=== PATIENT | female | born 1955 | race African-American/Black ===

== ENCOUNTER 2016-07-31 02:44 | Inpatient (IN) | payer OTHER ==
[~2016-07-31] VITALS: Ht 167.6 cm; Wt 75.7 kg
[~2016-07-31 02:44] MED LIST: CLON.2 PO; DIPH50 PO; IBUP200T50 PO; METO25 PO; RANI-257 PO; SENN-161 PO; TRAM50TA4 PO
[2016-07-31 03:10] LABS: BASOPHILS % (AUTO) 0.4 % (0.0-2.0); EOSINOPHILS % (AUTO) 1.2 % (1.0-6.0); HEMATOCRIT 38.6 % (36-46); HEMOGLOBIN 12.5 g/dL (12.0-16.0); LYMPHOCYTES # (AUTO) 3.2 K/uL (1.0-4.8); LYMPHOCYTES % (AUTO) 32.2 % (22.0-44.0); MEAN CORPUSCULAR HEMOGLOBIN 28.3 pg (26.0-34.0); MEAN CORPUSCULAR HGB CONC 32.5 G/dL (31.0-37.0); MEAN CORPUSCULAR VOLUME 87 fL (80-100); MONOCYTES # (AUTO) 0.7 K/uL (0.1-1.0); MONOCYTES % (AUTO) 7.1 % (2.0-9.0); NEUTROPHILS # (AUTO) 5.9 K/uL (1.8-7.7); NEUTROPHILS % (AUTO) 59.1 % (40.0-70.0); PLATELET COUNT (AUTO) 174 K/uL (150-450); RED BLOOD CELL COUNT(AUTO) 4.43 MIL/uL (4.00-5.20); RED CELL DISTRIBUTION WIDTH 14.2 % (11.5-14.5)
[2016-07-31 03:26] LABS: B-TYPE NATRIURETIC PEPTIDE 444 pg/mL (0-100)
[2016-07-31 03:36] LABS: ALANINE AMINOTRANSFERASE 40 U/L (12-78); ALBUMIN 3.2 g/dL (3.4-5.0); ANION GAP 12 mmol/L (8-16); ASPARTATE AMINOTRANSFERASE 40 U/L (15-37); BILIRUBIN,TOTAL 0.3 mg/dL (0.1-1.0); CALCIUM, TOTAL 8.5 mg/dL (8.8-10.5); CARBON DIOXIDE 23 mmol/L (22-29); CHLORIDE 103 mmol/L (98-107); CREATINE KINASE, TOTAL 104 U/L (26-192); CREATININE 1.37 mg/dL (0.60-1.30); GLOMERULAR FILTR. RATE CALC 47 mL/min (>60); SODIUM SERUM 138 mmol/L (136-145); TOTAL PROTEIN, SERUM 7.9 g/dL (6.4-8.2); UREA NITROGEN, BLOOD 34 mg/dL (7-18)
[2016-07-31 03:39] LABS: POTASSIUM 2.5 mmol/L (3.5-5.1)
[2016-07-31 03:47] LABS: INR 1.2 (0.9-1.1); PROTHROMBIN TIME 12.4 SEC (9.4-11.6)
[2016-07-31 03:48] LABS: CREATINE KINASE MB 1.4 ng/mL (0-5)
[2016-07-31] MEDS ORDERED: DIGOXIN 250 MCG/ML 2 ML AMP IVP ONE (04:00)
[2016-07-31] MEDS ORDERED: POTASSIUM CHLORIDE 10% 40 MEQ/30 ML LIQUID UDCUP PO ONE (04:00)
[2016-07-31] MEDS ORDERED: ASPIRIN 325 MG TABLET PO ONE (04:00)
[2016-07-31] MEDS ORDERED: 0.9% SODIUM CHLORIDE 10 ML SYRINGE IVP PRN ×2 (04:00→05:00)
[2016-07-31] MEDS ORDERED: POTASSIUM CHL 10 MEQ/WATER 50 ML IV ONE (04:00)
[2016-07-31] MEDS ORDERED: ACETAMINOPHEN 325 MG TABLET PO PRN ×2 (04:00→05:00)
[2016-07-31] MEDS ORDERED: ONDANSETRON HCL 4 MG/2 ML VIAL IVP PRN ×2 (04:00→05:00)
[2016-07-31] MEDS ORDERED: DILTIAZEM HCL 5 MG/ML 5 ML VIAL IVP ONE (04:00)
[2016-07-31 04:01] LABS: APPEARANCE,URINE CLEAR (CLEAR); GLUCOSE, URINE (UA) NEGATIVE (NEGATIVE); KETONES,URINE NEGATIVE (NEGATIVE); LEUKOCYTE ESTERASE ,URINE MODERATE (NEGATIVE); OCCULT BLOOD,URINE NEGATIVE (NEGATIVE); PROTEIN,URINE NEGATIVE (NEGATIVE)
[2016-07-31 04:02] LABS: ADD UA MICROSCOPIC YES
[2016-07-31 04:10] LABS: RBC,URINE None Seen /HPF (0-2); SQUAMOUS EPITHELIAL CELL,UR Few /LPF (None Seen)
[2016-07-31] MEDS ORDERED: MAGNESIUM HYDROXIDE SUSPENSION 30 ML UDCUP PO PRN (05:00)
[2016-07-31] MEDS ORDERED: TraMADol HCL 50 MG TABLET PO PRN (05:00)
[2016-07-31] MEDS ORDERED: OxyCODONE HCL/ACETAMINOPHEN 5-325 MG TABLET PO PRN ×2 (05:00)
[2016-07-31] MEDS ORDERED: NITROGLYCERIN 2% (1 GM=INCH) PACKET TP PRN ×2 (05:15)
[2016-07-31] MEDS ORDERED: MORPHINE SULFATE 2 MG/ML SYRINGE IVP PRN (05:15)
[2016-07-31] MEDS ORDERED: NITROGLYCERIN 0.4 MG SUBLINGUAL TABLET #25 SL PRN (05:15)
[2016-07-31 05:39] VITALS: BP 123/83
[2016-07-31] MEDS ORDERED: PNEUMOCOCCAL VACCINE POLYVALENT 0.5 ML VIAL [PPSV23] IM ONE (06:15)
[2016-07-31] MEDS ORDERED: INFLUENZA VIRUS VACCINE QVS 2016-17 (3YR+)/PF 60 MCG/0.5 ML SYRINGE IM ONE (06:15)
[2016-07-31 07:35] VITALS: BP 148/91
[2016-07-31] MEDS ORDERED: POTASSIUM CHL 10 MEQ/WATER 50 ML IV PRN (08:00)
[2016-07-31] MEDS ORDERED: LISINOPRIL 5 MG TABLET PO SCH (09:00)
[2016-07-31] MEDS ORDERED: METOPROLOL TARTRATE 25 MG TABLET PO SCH (09:00)
[2016-07-31 09:11] LABS: POTASSIUM 2.8 mmol/L (3.5-5.1)
[2016-07-31] MEDS: PANTOPRAZOLE SODIUM 40 MG/VIAL IVP SCH (09:17)
[2016-07-31] MEDS: CloNIDine HCL 0.2 MG TABLET PO SCH ×2 (09:17→20:14)
[2016-07-31] MEDS: ASPIRIN 81 MG CHEWABLE TABLET PO SCH (09:17)
[2016-07-31] MEDS: CARVEDILOL 6.25 MG TABLET PO SCH ×3 (09:18→20:14)
[2016-07-31] MEDS: DOCUSATE SODIUM 100 MG CAPSULE PO SCH ×2 (09:18→20:14)
[2016-07-31] MEDS: SENNA 187 MG TABLET PO SCH (09:18)
[2016-07-31] MEDS: POTASSIUM CHLORIDE 20 MEQ ER TABLET PO PRN ×2 (10:58→18:11)
[2016-07-31 11:50] VITALS: BP 154/78
[2016-07-31] MEDS: DiphenhydrAMINE HCL 25 MG CAPSULE PO PRN (12:22)
[2016-07-31] MEDS: GuaiFENesin/D-METHORPHAN [SUGAR-FREE] 200-20MG/10 ML SYRUP UDCUP PO PRN ×2 (13:20→17:16)
[2016-07-31 15:39] VITALS: BP 122/84
[2016-07-31] MEDS: MAG HYDROX/AL HYDROX/SIMETH 30 ML SUSP UDCUP PO PRN (17:17)
[2016-07-31 19:50] VITALS: BP 122/70
[2016-07-31] MEDS: ZOLPIDEM TARTRATE 5 MG TABLET PO PRN (20:13)
[2016-08-01] MEDS: DiphenhydrAMINE HCL 25 MG CAPSULE PO PRN ×2 (00:02→09:43)
[2016-08-01 04:00] VITALS: BP 126/78
[2016-08-01 07:16] LABS: BASOPHILS % (AUTO) 0.4 % (0.0-2.0); HEMATOCRIT 39.4 % (36-46); HEMOGLOBIN 12.6 g/dL (12.0-16.0); LYMPHOCYTES # (AUTO) 2.7 K/uL (1.0-4.8); LYMPHOCYTES % (AUTO) 34.3 % (22.0-44.0); MEAN CORPUSCULAR HEMOGLOBIN 28.5 pg (26.0-34.0); MEAN CORPUSCULAR HGB CONC 31.9 G/dL (31.0-37.0); MEAN CORPUSCULAR VOLUME 89 fL (80-100); MONOCYTES # (AUTO) 0.5 K/uL (0.1-1.0); MONOCYTES % (AUTO) 6.7 % (2.0-9.0); NEUTROPHILS # (AUTO) 4.5 K/uL (1.8-7.7); NEUTROPHILS % (AUTO) 56.6 % (40.0-70.0); PLATELET COUNT (AUTO) 163 K/uL (150-450); RED BLOOD CELL COUNT(AUTO) 4.42 MIL/uL (4.00-5.20); RED CELL DISTRIBUTION WIDTH 14.6 % (11.5-14.5); WHITE BLOOD COUNT (AUTO) 7.9 K/uL (4.5-11.0)
[2016-08-01 07:38] LABS: ALBUMIN 2.9 g/dL (3.4-5.0); BILIRUBIN,TOTAL 0.4 mg/dL (0.1-1.0); CALCIUM, TOTAL 8.8 mg/dL (8.8-10.5); CREATININE 1.31 mg/dL (0.60-1.30); MAGNESIUM 1.7 mg/dL (1.80-2.40); POTASSIUM 3.9 mmol/L (3.5-5.1); TOTAL PROTEIN, SERUM 7.9 g/dL (6.4-8.2)
[2016-08-01 08:21] VITALS: BP 112/70
[2016-08-01] MEDS: CloNIDine HCL 0.2 MG TABLET PO SCH ×2 (09:00→21:00)
[2016-08-01] MEDS: CARVEDILOL 6.25 MG TABLET PO SCH ×2 (09:41→17:12)
[2016-08-01] MEDS: SENNA 187 MG TABLET PO SCH (09:42)
[2016-08-01] MEDS: DOCUSATE SODIUM 100 MG CAPSULE PO SCH ×2 (09:42→21:00)
[2016-08-01] MEDS: ASPIRIN 81 MG CHEWABLE TABLET PO SCH (09:42)
[2016-08-01] MEDS: PANTOPRAZOLE SODIUM 40 MG/VIAL IVP SCH (09:55)
[2016-08-01] MEDS: GuaiFENesin/D-METHORPHAN [SUGAR-FREE] 200-20MG/10 ML SYRUP UDCUP PO PRN (10:35)
[2016-08-01 12:58] VITALS: BP 127/64
[2016-08-01] MEDS: MAG HYDROX/AL HYDROX/SIMETH 30 ML SUSP UDCUP PO PRN (15:01)
[2016-08-01 15:46] VITALS: BP 151/75
[2016-08-01 19:50] VITALS: BP 125/84
[2016-08-01] MEDS ORDERED: CARVEDILOL 12.5 MG TABLET PO SCH (21:00)
[2016-08-01 23:26] VITALS: BP 128/89
[2016-08-02] MEDS: ZOLPIDEM TARTRATE 5 MG TABLET PO PRN (02:18)
[2016-08-02 04:08] VITALS: BP 142/70
[2016-08-02 06:34] LABS: BASOPHILS # (AUTO) 0.02 K/uL (0.00-0.20); BASOPHILS % (AUTO) 0.2 % (0.0-2.0); EOSINOPHILS # (AUTO) 0.06 K/uL (0.00-0.70); EOSINOPHILS % (AUTO) 0.64 % (1.0-6.0); HEMATOCRIT 39.2 % (36-46); HEMOGLOBIN 12.8 g/dL (12.0-16.0); LYMPHOCYTES % (AUTO) 31.6 % (22.0-44.0); MEAN CORPUSCULAR HEMOGLOBIN 28.4 pg (26.0-34.0); MEAN CORPUSCULAR HGB CONC 32.5 G/dL (31.0-37.0); MEAN CORPUSCULAR VOLUME 87 fL (80-100); MONOCYTES # (AUTO) 0.8 K/uL (0.1-1.0); MONOCYTES % (AUTO) 8.1 % (2.0-9.0); NEUTROPHILS # (AUTO) 5.7 K/uL (1.8-7.7); NEUTROPHILS % (AUTO) 59.5 % (40.0-70.0); PLATELET COUNT (AUTO) 170 K/uL (150-450); RED BLOOD CELL COUNT(AUTO) 4.49 MIL/uL (4.00-5.20); RED CELL DISTRIBUTION WIDTH 14.3 % (11.5-14.5); WHITE BLOOD COUNT (AUTO) 9.5 K/uL (4.5-11.0)
[2016-08-02 07:19] LABS: ALBUMIN 3.2 g/dL (3.4-5.0); BILIRUBIN,TOTAL 0.4 mg/dL (0.1-1.0); CALCIUM, TOTAL 9.2 mg/dL (8.8-10.5); CREATININE 1.3 mg/dL (0.60-1.30); MAGNESIUM 1.8 mg/dL (1.80-2.40); POTASSIUM 3.6 mmol/L (3.5-5.1); TOTAL PROTEIN, SERUM 8.4 g/dL (6.4-8.2)
[2016-08-02 08:36] VITALS: BP 162/92
[2016-08-02] MEDS ORDERED: CloNIDine HCL 0.2 MG TABLET PO SCH (09:00)
[2016-08-02] MEDS ORDERED: ASPIRIN 81 MG CHEWABLE TABLET PO SCH (09:00)
[2016-08-02] MEDS: DOCUSATE SODIUM 100 MG CAPSULE PO SCH (09:00)
[2016-08-02] MEDS ORDERED: FUROSEMIDE 40 MG TABLET PO SCH (09:00)
[2016-08-02] MEDS: SENNA 187 MG TABLET PO SCH (09:00)
[2016-08-02] MEDS: PANTOPRAZOLE SODIUM 40 MG/VIAL IVP SCH (09:00)
[2016-08-02] MEDS ORDERED: SPIRONOLACTONE 50 MG TABLET PO SCH (09:00)
[2016-08-02] MEDS ORDERED: LISINOPRIL 5 MG TABLET PO SCH (09:00)
[2016-08-02] MEDS ORDERED: POTASSIUM CHLORIDE 10% 40 MEQ/30 ML LIQUID UDCUP PO SCH (09:00)
[2016-08-02] MEDS ORDERED: LISINOPRIL 10 MG TABLET PO SCH (09:00)
[2016-08-02] MEDS ORDERED: CARVEDILOL 25 MG TABLET PO SCH (09:00)
[2016-08-02] MEDS ORDERED: ASPI81 PO (11:31)
[2016-08-02] MEDS ORDERED: LISI-661 PO (11:32)
[2016-08-02] MEDS ORDERED: CARV25 PO (11:32)
[2016-08-02] MEDS ORDERED: CLON.1 PO (11:33)
[2016-08-02] MEDS ORDERED: FURO40 PO (11:33)
[2016-08-02] MEDS ORDERED: KDUR10 PO (11:34)
[2016-08-02] MEDS ORDERED: SPIR25 PO (11:34)
== END 2016-08-02 12:15 | disposition home or self-care (01) | DRG 201 ==
LOC: EMS 02:44 → 5N 05:00
PROVIDERS: ADMIT Internal Medicine; ATTEND Internal Medicine
DX: I48.0 Paroxysmal atrial fibrillation (principal); N17.9 Acute kidney failure, unspecified; E44.0 Moderate protein-calorie malnutrition; I42.9 Cardiomyopathy, unspecified; I11.0 Hypertensive heart disease with heart failure; I50.22 Chronic systolic (congestive) heart failure; E87.6 Hypokalemia; E78.5 Hyperlipidemia, unspecified; E86.0 Dehydration; F10.10 Alcohol abuse, uncomplicated; Z28.21 Immunization not carried out because of patient refusal; Z88.0 Allergy status to penicillin; Z79.899 Other long term (current) drug therapy; Z79.1 Long term (current) use of non-steroidal anti-inflammatories (NSAID); Z68.26 Body mass index [BMI] 26.0-26.9, adult; Z87.891 Personal history of nicotine dependence; Z91.19 Patient's noncompliance with other medical treatment and regimen
CPT/HCPCS: 83735; 84132; 90471; 93005; 93306; 96361; 96374; 99285; C9113; J1160; J2270; J3480; J3490

== ENCOUNTER 2016-08-13 07:47 | Inpatient (IN) | payer OTHER ==
[~2016-08-13] VITALS: Ht 167.6 cm; Wt 83.2 kg
[~2016-08-13 07:47] MED LIST changes: +ASPI81 PO; +CARV25 PO; +CLON.1 PO; -CLON.2 PO; +FURO40 PO; +KDUR10 PO; +LISI-661 PO; +SPIR25 PO
[2016-08-13] MEDS ORDERED: 0.9% SODIUM CHLORIDE 10 ML SYRINGE IVP PRN ×2 (08:00→11:15)
[2016-08-13] MEDS ORDERED: ALBUTEROL SULFATE 2.5 MG/0.5 ML NEB SOLUTION NEB ONE (08:00)
[2016-08-13] MEDS ORDERED: IPRATROPIUM BROMIDE 0.5 MG/2.5 ML NEB SOLUTION NEB ONE (08:00)
[2016-08-13 08:29] LABS: BASOPHILS % (AUTO) 0.2 % (0.0-2.0); EOSINOPHILS % (AUTO) 0.5 % (1.0-6.0); HEMOGLOBIN 12.6 g/dL (12.0-16.0); LYMPHOCYTES # (AUTO) 1.6 K/uL (1.0-4.8); LYMPHOCYTES % (AUTO) 18.4 % (22.0-44.0); MEAN CORPUSCULAR HEMOGLOBIN 27.5 pg (26.0-34.0); MEAN CORPUSCULAR HGB CONC 31.5 G/dL (31.0-37.0); MEAN CORPUSCULAR VOLUME 87 fL (80-100); MONOCYTES # (AUTO) 0.5 K/uL (0.1-1.0); MONOCYTES % (AUTO) 5.5 % (2.0-9.0); NEUTROPHILS # (AUTO) 6.7 K/uL (1.8-7.7); NEUTROPHILS % (AUTO) 75.4 % (40.0-70.0); PLATELET COUNT (AUTO) 179 K/uL (150-450); RED BLOOD CELL COUNT(AUTO) 4.58 MIL/uL (4.00-5.20); RED CELL DISTRIBUTION WIDTH 14.8 % (11.5-14.5); WHITE BLOOD COUNT (AUTO) 8.9 K/uL (4.5-11.0)
[2016-08-13 08:35] LABS: INR 1.3 (0.9-1.1); PROTHROMBIN TIME 13.8 SEC (9.4-11.6)
[2016-08-13 08:48] LABS: B-TYPE NATRIURETIC PEPTIDE 793 pg/mL (0-100)
[2016-08-13 08:58] LABS: ALANINE AMINOTRANSFERASE 97 U/L (12-78); ALBUMIN 3.2 g/dL (3.4-5.0); ANION GAP 11 mmol/L (8-16); ASPARTATE AMINOTRANSFERASE 54 U/L (15-37); BILIRUBIN,TOTAL 0.7 mg/dL (0.1-1.0); CALCIUM, TOTAL 8.3 mg/dL (8.8-10.5); CARBON DIOXIDE 25 mmol/L (22-29); CHLORIDE 105 mmol/L (98-107); CREATINE KINASE MB 2.6 ng/mL (0-5); CREATINE KINASE, TOTAL 140 U/L (26-192); CREATININE 1.38 mg/dL (0.60-1.30); GLOMERULAR FILTR. RATE CALC 47 mL/min (>60); SODIUM SERUM 141 mmol/L (136-145); TOTAL PROTEIN, SERUM 7.6 g/dL (6.4-8.2); UREA NITROGEN, BLOOD 19 mg/dL (7-18)
[2016-08-13 09:06] LABS: POTASSIUM 2.9 mmol/L (3.5-5.1)
[2016-08-13 09:07] LABS: LACTIC ACID 2.1 mmol/L (0.4-2.0)
[2016-08-13] MEDS ORDERED: POTASSIUM CHLORIDE 10% 40 MEQ/30 ML LIQUID UDCUP PO ONE (09:15)
[2016-08-13] MEDS ORDERED: FUROSEMIDE 40 MG/4 ML VIAL IVP ONE (09:15)
[2016-08-13] MEDS ORDERED: CefTRIAXone SODIUM 2 GM in DEXTROSE 5%-WATER 50 ML IV ONE (09:15)
[2016-08-13] MEDS ORDERED: NITROGLYCERIN 2% (1 GM=INCH) PACKET TP ONE (09:15)
[2016-08-13 09:25] LABS: INFLUENZA TYPE B NEGATIVE FOR TYPE B (NEGATIVE)
[2016-08-13 09:29] LABS: PROCALCITONIN (PCT) < 0.05 ng/mL (<0.50)
[2016-08-13] MEDS: POTASSIUM CHL 10 MEQ/WATER 50 ML IV SCH ×3 (09:41→12:51)
[2016-08-13 10:01] LABS: APPEARANCE,URINE CLOUDY (CLEAR); GLUCOSE, URINE (UA) NEGATIVE (NEGATIVE); KETONES,URINE TRACE mg/dL (NEGATIVE); LEUKOCYTE ESTERASE ,URINE SMALL (NEGATIVE); OCCULT BLOOD,URINE NEGATIVE (NEGATIVE); PH,URINE 6.5 (5.0-8.0); PROTEIN,URINE POS 1+ (NEGATIVE)
[2016-08-13 10:18] LABS: REFLEX LACTIC ACID? YES YES
[2016-08-13 10:33] LABS: ADD UA MICROSCOPIC YES; RBC,URINE None Seen /HPF (0-2)
[2016-08-13 10:36] LABS: SQUAMOUS EPITHELIAL CELL,UR Moderate /LPF (None Seen)
[2016-08-13] MEDS ORDERED: ONDANSETRON HCL 4 MG/2 ML VIAL IVP PRN (11:15)
[2016-08-13] MEDS ORDERED: ACETAMINOPHEN 325 MG TABLET PO PRN (11:15)
[2016-08-13] MEDS ORDERED: DILTIAZEM HCL 5 MG/ML 5 ML VIAL IVP ONE (12:15)
[2016-08-13] MEDS: ALBUTEROL SULFATE 2.5 MG/0.5 ML NEB SOLUTION NEB SCH ×2 (13:27→20:11)
[2016-08-13] MEDS: IPRATROPIUM BROMIDE 0.5 MG/2.5 ML NEB SOLUTION NEB SCH ×2 (13:28→20:12)
[2016-08-13] MEDS ORDERED: HYDROCODONE/ACETAMINOPHEN 5-325 MG TABLET PO ONE (14:00)
[2016-08-13 16:17] VITALS: BP 124/71
[2016-08-13 19:22] VITALS: BP 116/54
[2016-08-13] MEDS ORDERED: MAGNESIUM SULFATE 2 GM in DEXTROSE 5%-WATER 50 ML IV PRN (22:30)
[2016-08-13] MEDS ORDERED: POTASSIUM CHL 10 MEQ/WATER 50 ML IV PRN (22:30)
[2016-08-13] MEDS ORDERED: MAGNESIUM OXIDE 400 MG TABLET PO PRN (22:30)
[2016-08-13] MEDS ORDERED: MAGNESIUM SULFATE 4 GM/WATER 100 ML IV PRN (22:30)
[2016-08-13] MEDS ORDERED: POTASSIUM CHLORIDE 20 MEQ ER TABLET PO PRN (22:30)
[2016-08-13] MEDS ORDERED: ZOLPIDEM TARTRATE 10 MG TABLET PO PRN (22:30)
[2016-08-13] MEDS ORDERED: DiphenhydrAMINE HCL 50 MG CAPSULE PO PRN (22:45)
[2016-08-13 23:30] VITALS: BP 111/76
[2016-08-14 06:30] VITALS: BP 108/66
[2016-08-14 07:41] VITALS: BP 118/72
[2016-08-14] MEDS: SPIRONOLACTONE 25 MG TABLET PO SCH (09:00)
[2016-08-14] MEDS: CARVEDILOL 25 MG TABLET PO SCH ×2 (09:00→21:00)
[2016-08-14] MEDS ORDERED: FUROSEMIDE 40 MG TABLET PO SCH (09:00)
[2016-08-14] MEDS: CloNIDine HCL 0.1 MG TABLET PO SCH ×2 (09:00→21:00)
[2016-08-14] MEDS: FUROSEMIDE 40 MG/4 ML VIAL IVP SCH ×2 (09:19→21:00)
[2016-08-14] MEDS: LISINOPRIL 10 MG TABLET PO SCH (09:19)
[2016-08-14] MEDS: POTASSIUM CHLORIDE 10 MEQ ER TABLET PO SCH (09:19)
[2016-08-14] MEDS: ASPIRIN 81 MG CHEWABLE TABLET PO SCH (09:19)
[2016-08-14] MEDS: METOPROLOL TARTRATE 25 MG TABLET PO SCH (09:19)
[2016-08-14] MEDS ORDERED: MINERAL OIL 133 ML ENEMA PR ONE (11:00)
[2016-08-14] MEDS ORDERED: LORazepam 2 MG/ML VIAL IM ONE (12:00)
[2016-08-14] MEDS ORDERED: DiphenhydrAMINE HCL 50 MG/ML VIAL IM ONE (12:00)
[2016-08-14] MEDS ORDERED: HALOPERIDOL LACTATE 5 MG/ML VIAL IM ONE (12:00)
[2016-08-14] MEDS ORDERED: SODIUM CHLORIDE 0.9% 100 ML ONE (14:19)
[2016-08-14 15:43] VITALS: BP 100/59
[2016-08-14 20:28] VITALS: BP 106/71
[2016-08-14 23:23] VITALS: BP 114/68
[2016-08-15] MEDS: METOPROLOL TARTRATE 25 MG TABLET PO SCH ×3 (00:23→21:00)
[2016-08-15 04:12] VITALS: BP 113/70
[2016-08-15 08:39] VITALS: BP 110/66
[2016-08-15] MEDS: ASPIRIN 81 MG CHEWABLE TABLET PO SCH (09:54)
[2016-08-15] MEDS: LISINOPRIL 10 MG TABLET PO SCH (09:55)
[2016-08-15] MEDS: POTASSIUM CHLORIDE 10 MEQ ER TABLET PO SCH (09:55)
[2016-08-15] MEDS: CloNIDine HCL 0.1 MG TABLET PO SCH ×2 (09:56→21:00)
[2016-08-15] MEDS: SPIRONOLACTONE 25 MG TABLET PO SCH (09:56)
[2016-08-15] MEDS: FUROSEMIDE 40 MG/4 ML VIAL IVP SCH ×2 (11:06→20:35)
[2016-08-15 11:46] VITALS: BP 93/69
[2016-08-15 13:40] LABS: BASOPHILS % (AUTO) 0.4 % (0.0-2.0); EOSINOPHILS % (AUTO) 0.2 % (1.0-6.0); HEMATOCRIT 41.9 % (36-46); HEMOGLOBIN 13.1 g/dL (12.0-16.0); LYMPHOCYTES # (AUTO) 4.7 K/uL (1.0-4.8); LYMPHOCYTES % (AUTO) 37.2 % (22.0-44.0); MEAN CORPUSCULAR HEMOGLOBIN 27.3 pg (26.0-34.0); MEAN CORPUSCULAR HGB CONC 31.2 G/dL (31.0-37.0); MEAN CORPUSCULAR VOLUME 88 fL (80-100); MONOCYTES # (AUTO) 0.9 K/uL (0.1-1.0); MONOCYTES % (AUTO) 7.4 % (2.0-9.0); NEUTROPHILS % (AUTO) 54.8 % (40.0-70.0); PLATELET COUNT (AUTO) 195 K/uL (150-450); RED BLOOD CELL COUNT(AUTO) 4.79 MIL/uL (4.00-5.20); RED CELL DISTRIBUTION WIDTH 14.7 % (11.5-14.5); WHITE BLOOD COUNT (AUTO) 12.7 K/uL (4.5-11.0)
[2016-08-15 20:25] VITALS: BP 111/92
[2016-08-16 04:00] VITALS: BP 130/89
[2016-08-16 06:49] LABS: BASOPHILS % (AUTO) 0.4 % (0.0-2.0); EOSINOPHILS % (AUTO) 0.2 % (1.0-6.0); HEMATOCRIT 38.9 % (36-46); HEMOGLOBIN 12.2 g/dL (12.0-16.0); LYMPHOCYTES # (AUTO) 3.4 K/uL (1.0-4.8); LYMPHOCYTES % (AUTO) 28.5 % (22.0-44.0); MEAN CORPUSCULAR HEMOGLOBIN 27.3 pg (26.0-34.0); MEAN CORPUSCULAR HGB CONC 31.3 G/dL (31.0-37.0); MEAN CORPUSCULAR VOLUME 87 fL (80-100); MONOCYTES % (AUTO) 8.8 % (2.0-9.0); NEUTROPHILS # (AUTO) 7.3 K/uL (1.8-7.7); NEUTROPHILS % (AUTO) 62.1 % (40.0-70.0); PLATELET COUNT (AUTO) 192 K/uL (150-450); RED BLOOD CELL COUNT(AUTO) 4.46 MIL/uL (4.00-5.20); RED CELL DISTRIBUTION WIDTH 15.1 % (11.5-14.5); WHITE BLOOD COUNT (AUTO) 11.8 K/uL (4.5-11.0)
[2016-08-16 07:15] LABS: BILIRUBIN,TOTAL 0.6 mg/dL (0.1-1.0); CALCIUM, TOTAL 8.8 mg/dL (8.8-10.5); CREATININE 2.41 mg/dL (0.60-1.30); TOTAL PROTEIN, SERUM 7.8 g/dL (6.4-8.2)
[2016-08-16 07:57] VITALS: BP 110/64
[2016-08-16] MEDS: FUROSEMIDE 40 MG/4 ML VIAL IVP SCH (10:15)
[2016-08-16] MEDS: POTASSIUM CHLORIDE 10 MEQ ER TABLET PO SCH (10:15)
[2016-08-16] MEDS: METOPROLOL TARTRATE 25 MG TABLET PO SCH (10:16)
[2016-08-16] MEDS: ASPIRIN 81 MG CHEWABLE TABLET PO SCH (10:17)
[2016-08-16 11:08] VITALS: BP 113/79
[2016-08-16] MEDS: LISINOPRIL 10 MG TABLET PO SCH (11:45)
[2016-08-16] MEDS: CloNIDine HCL 0.1 MG TABLET PO SCH (11:45)
[2016-08-16] MEDS: SPIRONOLACTONE 25 MG TABLET PO SCH (11:47)
[2016-08-16] MEDS ORDERED: MORPHINE SULFATE 2 MG/ML SYRINGE IVP PRN (13:30)
== END 2016-08-16 17:05 | disposition left against medical advice (07) | DRG 194 ==
LOC: EMS 07:48 → 5S 15:01
PROVIDERS: ADMIT Hospitalist; ATTEND Hospitalist
DX: I13.0 Hypertensive heart and chronic kidney disease with heart failure and stage 1 through stage 4 chronic kidney disease, or unspecified chronic kidney disease (principal); N17.0 Acute kidney failure with tubular necrosis; E43 Unspecified severe protein-calorie malnutrition; R18.8 Other ascites; I42.0 Dilated cardiomyopathy; E83.42 Hypomagnesemia; I50.33 Acute on chronic diastolic (congestive) heart failure; I48.91 Unspecified atrial fibrillation; E87.6 Hypokalemia; F20.9 Schizophrenia, unspecified; F10.20 Alcohol dependence, uncomplicated; N18.9 Chronic kidney disease, unspecified; E66.9 Obesity, unspecified; Z68.29 Body mass index [BMI] 29.0-29.9, adult; Z91.19 Patient's noncompliance with other medical treatment and regimen; Z79.82 Long term (current) use of aspirin; Z79.899 Other long term (current) drug therapy
CPT/HCPCS: 76700; 83605; 83735; 84132; 84145; 87040; 87804; 93005; 94640; 96361; 96365; 96375; 99285; J0696; J1200; J1630; J1940; J2060; J3475; J3480; J7050; J7060

== ENCOUNTER 2016-10-30 08:23 | Day surgery (SDC) | payer OTHER ==
[~2016-10-30] VITALS: Ht 165.1 cm; Wt 64.1 kg
[~2016-10-30 08:23] MED LIST changes: +0.9% SODIUM CHLORIDE 10 ML VIAL IVP ONE; +DEXAMETHASONE SOD PHOS 4 MG/ML VIAL IVP ONE; +FentaNYL CITRATE-PF 100 MCG/2 ML VIAL IVP ONE; +HYALURONATE SOD/CHONDROITIN SOD 0.5 ML VIAL IO ONE; +HYALURONATE SODIUM 12 MG/ML 0.8 ML SYRINGE IO ONE; +LIDOCAINE HCL/PF 1% 2 ML VIAL INJ ONE; +MIDAZOLAM HCL 2 MG/2 ML VIAL IVP ONE; +PHENYLEPHRINE HCL 10 MG/ML VIAL IVP ONE; +POVIDONE-IODINE 10% 15 ML SOLUTION UD TP ONE; +PROPOFOL 1% 20 ML VIAL IVP ONE; +TETRACAINE HCL VISCOUS 0.5% 0.6 ML OPHTHALMIC SOLUTION OS ONE
[2016-10-30] MEDS ORDERED: SODIUM CHLORIDE 0.9% 500 ML IV ONE ×2 (08:39→09:00)
[2016-10-30] MEDS ORDERED: DICLOFENAC SODIUM 0.1% 2.5 ML OPHTHALMIC SOLUTION ONE (08:39)
[2016-10-30] MEDS ORDERED: TROPICAMIDE 1% 2 ML OPHTHALMIC SOLUTION ONE (08:39)
[2016-10-30] MEDS ORDERED: MOXIFLOXACIN HCL 0.5% 3 ML OPHTHALMIC SOLUTION ONE (08:39)
[2016-10-30] MEDS ORDERED: PHENYLEPHRINE HCL 2.5% 2 ML OPHTHALMIC SOLUTION ONE (08:39)
[2016-10-30] MEDS ORDERED: DICLOFENAC SODIUM 0.1% 2.5 ML OPHTHALMIC SOLUTION OD ONE (09:30)
[2016-10-30] MEDS ORDERED: MOXIFLOXACIN HCL 0.5% 3 ML OPHTHALMIC SOLUTION OD ONE (09:30)
[2016-10-30] MEDS: PHENYLEPHRINE HCL 2.5% 2 ML OPHTHALMIC SOLUTION OD SCH ×2 (09:38→09:44)
[2016-10-30] MEDS: TROPICAMIDE 1% 2 ML OPHTHALMIC SOLUTION OD SCH ×2 (09:38→09:44)
[2016-10-30] MEDS ORDERED: OMEP20 PO (09:48)
[2016-10-30] MEDS ORDERED: ACET-66 PO (09:49)
== END 2016-10-30 17:00 | disposition home or self-care (01) ==
LOC: SURGERY 08:23
PROVIDERS: ATTEND Specialist
DX: H25.011 Cortical age-related cataract, right eye (principal); I10 Essential (primary) hypertension; M19.90 Unspecified osteoarthritis, unspecified site; J32.9 Chronic sinusitis, unspecified; M54.9 Dorsalgia, unspecified; I42.9 Cardiomyopathy, unspecified; F20.9 Schizophrenia, unspecified; Z72.89 Other problems related to lifestyle; Z87.891 Personal history of nicotine dependence; Z86.69 Personal history of other diseases of the nervous system and sense organs
CPT/HCPCS: 66982; 67010; 93005; C1780; J1100; J2250; J2370; J2704; J3010; J3490 ×2; J7040

== ENCOUNTER 2016-12-04 09:03 | Day surgery (SDC) | payer OTHER ==
[~2016-12-04] VITALS: Ht 163.8 cm; Wt 71.8 kg
[~2016-12-04 09:03] MED LIST changes: -0.9% SODIUM CHLORIDE 10 ML VIAL IVP ONE; +ACET-66 PO; -DEXAMETHASONE SOD PHOS 4 MG/ML VIAL IVP ONE; -FentaNYL CITRATE-PF 100 MCG/2 ML VIAL IVP ONE; -HYALURONATE SOD/CHONDROITIN SOD 0.5 ML VIAL IO ONE; -HYALURONATE SODIUM 12 MG/ML 0.8 ML SYRINGE IO ONE; -LIDOCAINE HCL/PF 1% 2 ML VIAL INJ ONE; -MIDAZOLAM HCL 2 MG/2 ML VIAL IVP ONE; +OMEP20 PO; -PHENYLEPHRINE HCL 10 MG/ML VIAL IVP ONE; -POVIDONE-IODINE 10% 15 ML SOLUTION UD TP ONE; -PROPOFOL 1% 20 ML VIAL IVP ONE; -RANI-257 PO; -SENN-161 PO; -TETRACAINE HCL VISCOUS 0.5% 0.6 ML OPHTHALMIC SOLUTION OS ONE; -TRAM50TA4 PO
[2016-12-04] MEDS ORDERED: PHENYLEPHRINE HCL 2.5% 2 ML OPHTHALMIC SOLUTION ONE (09:18)
[2016-12-04] MEDS ORDERED: TROPICAMIDE 1% 2 ML OPHTHALMIC SOLUTION ONE (09:18)
[2016-12-04] MEDS ORDERED: RINGERS SOLUTION,LACTATED 0 ML IV ONE (09:18)
[2016-12-04] MEDS ORDERED: DICLOFENAC SODIUM 0.1% 2.5 ML OPHTHALMIC SOLUTION ONE (09:18)
[2016-12-04] MEDS ORDERED: MOXIFLOXACIN HCL 0.5% 3 ML OPHTHALMIC SOLUTION ONE (09:18)
[2016-12-04] MEDS ORDERED: SODIUM CHLORIDE 0.9% 500 ML IV ONE ×2 (09:22→09:30)
[2016-12-04] MEDS ORDERED: DICLOFENAC SODIUM 0.1% 2.5 ML OPHTHALMIC SOLUTION OS ONE (09:30)
[2016-12-04] MEDS ORDERED: MOXIFLOXACIN HCL 0.5% 3 ML OPHTHALMIC SOLUTION OS ONE (09:30)
[2016-12-04] MEDS: TROPICAMIDE 1% 2 ML OPHTHALMIC SOLUTION OS SCH ×2 (10:12→10:17)
[2016-12-04] MEDS: PHENYLEPHRINE HCL 2.5% 2 ML OPHTHALMIC SOLUTION OS SCH ×2 (10:12→10:18)
[2016-12-04] MEDS ORDERED: HYALURONATE SODIUM 12 MG/ML 0.8 ML SYRINGE IO ONE (12:00)
[2016-12-04] MEDS ORDERED: PROPOFOL 1% 20 ML VIAL IVP ONE (12:00)
[2016-12-04] MEDS ORDERED: POVIDONE-IODINE 10% 15 ML SOLUTION UD TP ONE (12:00)
[2016-12-04] MEDS ORDERED: LIDOCAINE HCL/PF 2% 5 ML VIAL INJ ONE (12:00)
[2016-12-04] MEDS ORDERED: HYALURONATE SOD/CHONDROITIN SOD 0.5 ML VIAL IO ONE (12:00)
[2016-12-04] MEDS ORDERED: MIDAZOLAM HCL 2 MG/2 ML VIAL IVP ONE (12:00)
[2016-12-04] MEDS ORDERED: LIDOCAINE HCL/PF 1% 2 ML VIAL INJ ONE (12:00)
[2016-12-04] MEDS ORDERED: FentaNYL CITRATE-PF 100 MCG/2 ML VIAL IVP ONE (12:00)
[2016-12-04] MEDS ORDERED: TETRACAINE HCL VISCOUS 0.5% 0.6 ML OPHTHALMIC SOLUTION OS ONE (12:00)
[2016-12-04] MEDS ORDERED: DEXAMETHASONE SOD PHOS 4 MG/ML VIAL IVP ONE (12:00)
== END 2016-12-04 13:40 | disposition home or self-care (01) ==
LOC: SURGERY 09:03
PROVIDERS: ATTEND Specialist
DX: H25.012 Cortical age-related cataract, left eye (principal); I10 Essential (primary) hypertension; J32.9 Chronic sinusitis, unspecified; M19.90 Unspecified osteoarthritis, unspecified site; K21.9 Gastro-esophageal reflux disease without esophagitis; K74.60 Unspecified cirrhosis of liver; I42.9 Cardiomyopathy, unspecified; E87.6 Hypokalemia; E83.42 Hypomagnesemia; F20.9 Schizophrenia, unspecified; Z79.82 Long term (current) use of aspirin; Z98.41 Cataract extraction status, right eye; Z87.19 Personal history of other diseases of the digestive system
CPT/HCPCS: 66982; C1780; J1100; J2250; J2704; J3010; J3490 ×3; J7040; J7120

== ENCOUNTER 2019-01-11 10:00 | Emergency (ER) | payer OTHER ==
[~2019-01-11] VITALS: Ht 167.6 cm; Wt 61.4 kg
[~2019-01-11 10:00] MED LIST changes: +CLON-570 PO; -CLON.1 PO; +IBUP-2353 PO; -IBUP200T50 PO
[2019-01-11] MEDS ORDERED: METHOCARBAMOL 500 MG TABLET PO ONE (11:15)
[2019-01-11] MEDS ORDERED: LIDOCAINE 5% TRANSDERMAL PATCH TD ONE (11:15)
[2019-01-11] MEDS ORDERED: KETOROLAC TROMETHAMINE 30 MG/ML VIAL IM ONE (11:15)
[2019-01-11 11:47] VITALS: BP 119/71
== END 2019-01-11 12:00 | disposition home or self-care (01) ==
LOC: EMS 10:02
DX: M54.2 Cervicalgia (principal); I11.9 Hypertensive heart disease without heart failure; I48.91 Unspecified atrial fibrillation; Z79.82 Long term (current) use of aspirin; Z79.899 Other long term (current) drug therapy
CPT/HCPCS: 96372; 99283; J1885

== ENCOUNTER 2020-02-11 12:25 | Emergency (ER) | payer MEDICARE, OTHER ==
[~2020-02-11] VITALS: Ht 170.2 cm; Wt 70.5 kg
[~2020-02-11 12:25] MED LIST changes: +ASPI-728 PO; -ASPI81 PO; -CLON-570 PO; +CLON0.1T83 PO; -IBUP-2353 PO; +IBUP-2784 PO; -KDUR10 PO; +POTA-92 PO
[2020-02-11 12:31] VITALS: BP 134/97
[2020-02-11] MEDS ORDERED: RIVA10 PO (12:45)
[2020-02-11] MEDS ORDERED: BUME1TAB34 PO (12:45)
[2020-02-11] MEDS ORDERED: DIGO125T84 PO (12:45)
[2020-02-11] MEDS ORDERED: LISI-660 PO (12:45)
[2020-02-11] MEDS ORDERED: ACETAMINOPHEN 500 MG TABLET PO ONE (13:30)
[2020-02-11] MEDS ORDERED: DOXYCYCLINE HYCLATE 100 MG TABLET PO ONE (13:30)
[2020-02-11] MEDS ORDERED: DOXYCYCLINE HYCLATE 100 MG CAPSULE PO ONE (13:30)
== END 2020-02-11 13:45 | disposition home or self-care (01) ==
LOC: EMS 12:30
DX: L02.415 Cutaneous abscess of right lower limb (principal); I48.91 Unspecified atrial fibrillation; I11.9 Hypertensive heart disease without heart failure; Z79.899 Other long term (current) drug therapy